=== PATIENT | female | born 1980 ===

== ENCOUNTER 2017-10-13 15:21 | Emergency (ER) | payer OTHER ==
[2017-10-13 15:48] VITALS: TEMP 98.1
--- NOTE | 2017-10-13 16:01 | ED PDOC ---
Arrival/HPI - General Chief Complaint: Abdominal Pain Time Seen by Provider: 10/13/17 15:54 Historian: Patient - History of Present Illness Narrative History of Present Illness (Text): 10/13/17 15:55 37 y/o female, no significant pmh, nkda, LMP 08/06/2017, , c/o pelvic pain on and off x 1 week with no fall or trauma. Aching pain, cramping on and off 2- 3 episodes, no fever or chills, no vaginal bleeding or discharge no fever or chills, no abdominal pain, no nausea or vomiting, eating and drinking well, no change in energy level, no rash, no recent traveling, no other medical or psychological complaints. Past Medical History - Provider Review Nursing Documentation Reviewed: Yes - Infectious Disease Hx of Infectious Diseases: None - Psychiatric Hx Substance Use: No - Anesthesia Hx Anesthesia: No Hx Anesthesia Reactions: No Hx Malignant Hyperthermia: No Family/Social History - Physician Review Nursing Documentation Reviewed: Yes Family/Social History: Unknown Family HX Smoking Status: Never Smoked Hx Alcohol Use: No Hx Substance Use: No Allergies/Home Meds Allergies/Adverse Reactions: Allergies No Known Allergies Allergy (Verified 10/13/17 15:48) Review of Systems - Review of Systems Constitutional: absent: Fatigue, Fevers Eyes: absent: Vision Changes ENT: absent: Hearing Changes Respiratory: absent: SOB, Cough Cardiovascular: absent: Chest Pain Gastrointestinal: absent: Abdominal Pain, Diarrhea, Nausea, Vomiting Genitourinary Female: Other (pelvic pain) Skin: absent: Rash, Pruritis Neurological: absent: Headache, Dizziness Psychiatric: absent: Anxiety, Depression, Suicidal Ideation Physical Exam Vital Signs Reviewed: Yes Vital Signs Temp Pulse Resp BP Pulse Ox 10/13/17 17:19 78 18 101/59 L 98 10/13/17 15:42 98.1 F 84 19 97/58 L 99 Temperature: Afebrile Pulse: Regular Respiratory Rate: Normal Appearance: Positive for: Well-Appearing, Non-Toxic, Comfortable Pain Distress: Mild Mental Status: Positive for: Alert and Oriented X 3 - Systems Exam Head: Present: Atraumatic, Normocephalic Pupils: Present: PERRL Extroacular Muscles: Present: EOMI Conjunctiva: Present: Normal Mouth: Present: Moist Mucous Membranes Neck: Present: Normal Range of Motion Respiratory/Chest: Present: Clear to Auscultation, Good Air Exchange. No: Respiratory Distress, Accessory Muscle Use Cardiovascular: Present: Regular Rate and Rhythm, Normal S1, S2. No: Murmurs Abdomen: Present: Normal Bowel Sounds. 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 No: Vaginal Discharge, Vaginal Bleeding, Vaginal Lesions, Adenexal Tenderness, Adenexal Mass, Cervical Motion Tendernes, Odor Back: Present: Normal Inspection Upper Extremity: Present: Normal Inspection. No: Cyanosis, Edema Lower Extremity: Present: Normal Inspection. No: Edema Neurological: Present: GCS=15, CN II-XII Intact, Speech Normal, Motor Func Grossly Intact, Gait Normal, Memory Normal Skin: Present: Warm, Dry, Normal Color. No: Rashes Psychiatric: Present: Alert, Oriented x 3, Normal Insight, Normal Concentration Medical Decision Making ED Course and Treatment: 10/13/17 16:06 -labs/ua/beta hcg/type and screen -Transvaginal sono -Tylenol -observe and reassess 10/13/17 18:46 -Labs are non-significant except potassium 3.4 (advised to eat more banana and drink more orange juice) -UA show +UTI, macrobid ordered -Beta hcg [id number], aprox. 7-12 weeks -Blood type: O+ -Transvaginal sonogram show Single viable intrauterine of 9 weeks. The estimated date of delivery is 05/18/18. Small subchorionic hemorrhage. 2.8x2.2x2.3 CM simple left ovarian cyst. -Pt. feels asymptomatic and no pain, no active bleeding. -I spoke to the obgyn cone classifier tender DR. Matthews, discussed about the case/labs/ sonogram result, suggest to discharge home with bed rest and outpatient follow up with him. -Discharge home with macrobid, tylenol, bed rest, pelvic rest, avoid strenuous exercise or activity, avoid excessive standing, no sexual activity until clear by the obgyn, follow up with your own pmd and obgyn or dr. matthews within 2 days, return to the ER for any new or worsening signs or symptoms. - Lab Interpretations Lab Results: 10/13/17 16:20 10/13/17 16:20 Lab Results 10/13/17 18:00: Urine Color Yellow, Urine Appearance Sl cloudy, Urine pH 6.0, Ur Specific [place] 1.020, Urine Protein Negative, Urine Glucose (UA) Negative, Urine Ketones Negative, Urine Blood Negative, Urine Nitrate Negative, Urine Bilirubin Negative, Urine Urobilinogen 0.2, Ur Leukocyte Esterase Small H, Urine RBC Negative, Urine WBC 10 - 15, Ur Epithelial Cells Many, Urine Bacteria Mod 10/13/17 16:20: Blood Type O POSITIVE, Antibody Screen Negative, BBK History Checked No verified bt 10/13/17 16:20: WBC 9.4, RBC 4.31, Hgb 13.2, Hct 39.0, MCV 90.5, MCH 30.6, MCHC 33.8, RDW 12.6, Plt Count 212, MPV 9.9, Gran % 70.0 H, Lymph % (Auto) 23.7, [place] % (Auto) 4.3, Eos % (Auto) 1.7, Baso % (Auto) 0.3, Gran # 6.57 H, Lymph # ( Auto) 2.2, [place] # (Auto) 0.4, Eos # (Auto) 0.2, Baso # (Auto) 0.03 10/13/17 16:20: Beta HCG, Quant [id number] H 10/13/17 16:20: Sodium 137, Potassium 3.4 L, Chloride 104, Carbon Dioxide 23, Anion Gap 14, BUN 11, Creatinine 0.6 L, Est GFR ( Amer) > 60, Est GFR ( Non-Af Amer) > 60, Random Glucose 80, Calcium 9.4, Total Bilirubin 0.3, AST 23, ALT 26, Alkaline Phosphatase 48, Total Protein 7.3, Albumin 3.8, Globulin 3.5, Albumin/Globulin Ratio 1.1 - RAD Interpretation Radiology Orders: 10/13/17 16:02 OB TRANSVAGINAL [US] Stat FINDINGS: Gestation: There is an intrauterine gestation with a crown-rump length of 2 CM corresponding to 8 weeks 4 days. The mean gestational sac diameter is 3.9 CM corresponding to 9 weeks 1 day. The estimated date of delivery is . heart rate is detected at 176 beats per minute. A 5 mm secondary yolk sac is visualized. Placenta/amniotic fluid: The amnion is not fused. Due to the early gestation, the placental location is not determined but may be anterior. Small 6 x 7 mm subchorionic fluid. Uterus/cervix: The uterus measures 11.9 x 5.4x8.5 CM. The cervix is closed and measures 3.5 CM in length. No myometrial mass. Ovaries: The right ovary is normal in size, contour and echotexture with tiny follicles. It measures 2.2x0.9 x2.9 CM with a volume of 3.1 mL. Asymmetrically enlarged left ovary. It measures 3.4x2.7 x3.8 CM with a volume of 18.3 mL. There is a 2.8x2.2x2.3 CM simple cyst. No torsion. No mass. Free fluid: No cul-de-sac fluid. IMPRESSION: Single viable intrauterine of 9 weeks. The estimated date of delivery is 05/18/18. Small subchorionic hemorrhage. 2.8x2.2x2.3 CM simple left ovarian cyst. Thank you for allowing us to participate in the care of your patient. Dictated and Authenticated by: Delmi Watson MD 10/13/2017 6:18 PM Eastern Time ([place] & [place]) Dairy Hand: Radiologist - Medication Orders Current Medication Orders: Discontinued Medications Acetaminophen (Tylenol 325mg Tab) 650 mg PO STAT STA Stop: 10/13/17 16:03 Last Admin: 10/13/17 16:17 Dose: 650 mg MAR Pain/Vitals Document 10/13/17 16:17 HP (Rec: 10/13/17 16:17 HP [id number]) Pain Reassessment Is This A Pain ReAssessment? No - PA / [employer] / Resident Statement / has reviewed & agrees with the documentation as recorded. Disposition/Present on Arrival - Present on Arrival Any Indicators Present on Arrival: No History of DVT/PE: No History of Uncontrolled Diabetes: No Urinary Catheter: No History of Decub. Ulcer: No History Surgical Site Infection Following: None - Disposition Have Diagnosis and Disposition been Completed?: Yes Diagnosis: Subchorionic hemorrhage in first trimester, UTI (urinary tract infection), Pelvic pain Disposition: HOME/ ROUTINE Disposition Time: 18:51 Patient Plan: Discharge Condition: IMPROVED Additional Instructions: Discharge home with macrobid, tylenol, bed rest, pelvic rest, avoid strenuous exercise or activity, avoid excessive standing, no sexual activity until clear by the obgyn, follow up with your own pmd and obgyn or dr. matthews within 2 days, return to the ER for any new or worsening signs or symptoms. Prescriptions: Acetaminophen 2 cap PO QID PRN #30 capsule PRN Reason: Other Nitrofurantoin Macrocrystals [Macrobid] 100 mg PO BID #14 cap Referrals: John Matthews MD [Staff Provider] - Follow up with primary [facility] [place] [Outside] - Follow up with primary Forms: WORK NOTE
[2017-10-13 16:29] LABS: BASO # 0.03 K/mm3 (0.0-2.0); BASO % 0.3 % (0.0-3.0); EOS # 0.2 (0.0-0.7); EOS % 1.7 % (1.5-5.0); GRAN # 6.57 (1.4-6.5); HEMOGLOBIN 13.2 g/dL (12.0-16.0); LYMPH # 2.2 (1.2-3.4); LYMPH % 23.7 % (22.0-35.0); MEAN CELL VOLUME 90.5 fl (80.0-105.0); MEAN CORPUSCULAR HEMOGLOBIN 30.6 pg (25.0-35.0); MEAN CORPUSCULAR HGB CONC 33.8 g/dl (31.0-37.0); MEAN PLATELET VOLUME 9.9 fl (7.0-11.0); MONO # 0.4 (0.1-0.6); MONO % 4.3 % (1.0-6.0); RBC 4.31 10^6/uL (3.5-6.1); RED CELL DISTRIBUTION WIDTH 12.6 % (11.5-14.5); WHITE BLOOD COUNT 9.4 10^3/ul (4.5-11.0)
[2017-10-13 16:39] LABS: ALB/GLOB RATIO 1.1 (1.1-1.8); ALBUMIN 3.8 g/dL (3.0-4.8); ALT/SGPT 26 U/L (7-56); AST/SGOT 23 U/L (14-36); BLOOD UREA NITROGEN 11 mg/dL (7-21); CALCIUM 9.4 mg/dL (8.4-10.5); GFR AFRICAN-AMERICAN > 60; GFR NON-AFRICAN AMERICAN > 60
[2017-10-13 17:19] VITALS: BP 101/59; PULSE 78; RESP 18; O2SAT 98
[2017-10-13 18:14] LABS: URINE BILIRUBIN NEGATIVE (NEGATIVE); URINE BLOOD NEGATIVE (NEGATIVE); URINE GLUCOSE (UA) NEGATIVE (NEGATIVE); URINE LEUKOCYTE ESTERASE SMALL Leu/uL (NEGATIVE); URINE NITRATE NEGATIVE (NEGATIVE); URINE PROTEIN NEGATIVE mg/dL (<30 mg/dL); URINE UROBILINOGEN 0.2 E.U./dL (<1 E.U./dL)
[2017-10-13 18:17] LABS: URINE APPEARANCE SL CLOUDY (CLEAR); URINE COLOR YELLOW (YELLOW)
[2017-10-13 18:21] LABS: URINE RBC NEGATIVE /hpf (0-2)
[2017-10-13 18:22] LABS: URINE BACTERIA MOD (NEG); URINE EPITHELIAL CELLS MANY /hpf (0-5)
--- NOTE | 2017-10-14 09:04 | US ---
PROCEDURE: OB Pelvic Ultrasound HISTORY: pregnan? pelvic pain x 1 week COMPARISON: None available. FINDINGS: UTERUS: Single Live intrauterine gestation. CRL equivalent to 8 weeks 6 days gestatioin Gestational sac diameter equivalent to 9 weeks 1 day gestation age (Ultrasound estimated): 9 weeks Date of delivery (Ultrasound estimated) : 05/18/2018 Heart rate: 171 bpm. Rebecca-gestational hemorrhage: None. Uterus measures 11.9 x 5.3 x 8.3 cm. No mass CERVIX: Long and closed. No cervical abnormality seen. RIGHT OVARY: Measures 2.2 by 0.9 x 2.9 cm. No mass. Normal flow. LEFT OVARY: Measures 3.4 x 2.7 x 3.7 cm. No mass. Normal flow. There is a cyst measuring 2.7 x 2.2 x 2.3 cm FREE FLUID: None. OTHER FINDINGS: None. IMPRESSION: Single viable intrauterine gestation. Gestational age 9 weeks
== END 2017-10-13 19:23 | disposition home or self-care (01) ==
LOC: ED 15:21
DX: O20.8 Other hemorrhage in early pregnancy (principal); O23.41 Unspecified infection of urinary tract in pregnancy, first trimester; Z3A.09 9 weeks gestation of pregnancy; R10.2 Pelvic and perineal pain